=== PATIENT | female | born 1985 | race Hispanic/Latino ===

== ENCOUNTER 2019-11-19 20:14 | Emergency (ER) | payer MEDICAID, OTHER ==
[2019-11-19 21:07] LABS: BASOPHILS % (AUTO) 0.8 % (0.0-5.0); EOSINOPHILS % (AUTO) 3.3 % (0.0-8.0); HEMATOCRIT 40.8 % (36-48); LYMPHOCYTES % (AUTO) 23.3 % (21.0-51.0); MEAN CORPUSCULAR HEMOGLOBIN 29.7 pg (27.0-33.0); MEAN CORPUSCULAR HGB CONC 33.1 g/dL (32.0-36.0); MEAN CORPUSCULAR VOLUME 89.9 fL (79-99); MONOCYTES % (AUTO) 5.6 % (3.0-13.0); NEUTROPHILS % (AUTO) 66.6 % (40.0-77.0); PLATELET COUNT (AUTO) 304 K/uL (130-400); RED BLOOD CELL COUNT(AUTO) 4.54 MIL/uL (4.00-5.50); RED CELL DISTRIBUTION WIDTH 13.2 % (11.0-15.5); WHITE BLOOD COUNT (AUTO) 11.8 K/uL (4.8-10.8)
[2019-11-19 21:25] LABS: CREATININE 0.6 mg/dL (0.5-1.5); POTASSIUM 3.3 mmol/L (3.5-5.1)
[2019-11-19 21:30] LABS: ALBUMIN 4.2 g/dL (3.5-5.0); BILIRUBIN,DIRECT 0.2 mg/dL (0.0-0.3); BILIRUBIN,TOTAL 0.5 mg/dL (0.2-1.0); TOTAL PROTEIN, SERUM 7.8 g/dL (6.0-8.3)
[2019-11-19] MEDS ORDERED: KETOROLAC TROMETHAMINE 30MG/ML ONE (21:43)
[2019-11-19 22:02] LABS: APPEARANCE,URINE SL CLOUDY (CLEAR); BILIRUBIN,URINE NEGATIVE (NEGATIVE); COLOR,URINE YELLOW (YELLOW); GLUCOSE, URINE (UA) NEGATIVE (NEGATIVE); KETONES,URINE NEGATIVE (NEGATIVE); LEUKOCYTE ESTERASE ,URINE TRACE (NEGATIVE); NITRATE,URINE NEGATIVE (NEGATIVE); OCCULT BLOOD,URINE NEGATIVE (NEGATIVE); PH,URINE 7.5 (5.0-8.0); PROTEIN,URINE NEGATIVE (NEGATIVE)
[2019-11-19 22:09] LABS: AMORPHOUS SEDIMENT,UR Moderate /LPF (None Seen); BACTERIA,URINE Few /HPF (None Seen); MUCUS,URINE Few LPF (None Seen); SQUAMOUS EPITHELIAL CELL,UR Moderate /HPF (0-2)
[2019-11-19] MEDS ORDERED: ORPHENADRINE CITRATE 30 MG/ML ML ONE (23:28)
[2019-11-19] MEDS ORDERED: LIDOCAINE 5% TOPICAL PATCH TP ONE (23:29)
== END 2019-11-20 00:41 | disposition home or self-care (01) ==
LOC: EDH 20:14
DX: M94.0 Chondrocostal junction syndrome [Tietze] (principal); Z98.51 Tubal ligation status
CPT/HCPCS: 36415; 71046; 80048; 80076; 81001; 81025; 82550; 83690; 84484; 85025; 85378; 93005; 96374; 96375; 99285; J1885; J2360

== ENCOUNTER 2019-11-23 16:55 | Inpatient (IN) | payer SELFPAY ==
[~2019-11-23] VITALS: Ht 149.9 cm; Wt 60.3 kg
[2019-11-23 17:21] LABS: BASOPHILS % (AUTO) 0.7 % (0.0-5.0); HEMATOCRIT 42.5 % (36-48); LYMPHOCYTES % (AUTO) 23.8 % (21.0-51.0); MEAN CORPUSCULAR HEMOGLOBIN 30.2 pg (27.0-33.0); MEAN CORPUSCULAR HGB CONC 32.9 g/dL (32.0-36.0); MEAN CORPUSCULAR VOLUME 91.6 fL (79-99); MONOCYTES % (AUTO) 6.9 % (3.0-13.0); NEUTROPHILS % (AUTO) 64.3 % (40.0-77.0); PLATELET COUNT (AUTO) 309 K/uL (130-400); RED BLOOD CELL COUNT(AUTO) 4.64 MIL/uL (4.00-5.50); RED CELL DISTRIBUTION WIDTH 13.5 % (11.0-15.5); WHITE BLOOD COUNT (AUTO) 9.7 K/uL (4.8-10.8)
[2019-11-23 17:26] LABS: APPEARANCE,URINE Turbid (CLEAR); BILIRUBIN,URINE Negative (NEGATIVE); COLOR,URINE Yellow (YELLOW); GLUCOSE, URINE (UA) Negative (NEGATIVE); KETONES,URINE Negative (NEGATIVE); LEUKOCYTE ESTERASE ,URINE Negative (NEGATIVE); NITRATE,URINE Negative (NEGATIVE); OCCULT BLOOD,URINE Large (NEGATIVE); PH,URINE 6.5 (5.0-8.0); PROTEIN,URINE Trace mg/dL (NEGATIVE)
[2019-11-23 17:28] LABS: HCG,QUAL RESULT NEGATIVE (NEGATIVE)
[2019-11-23 17:31] LABS: CREATININE 0.7 mg/dL (0.5-1.5); POTASSIUM 3.4 mmol/L (3.5-5.1)
[2019-11-23 17:33] LABS: RBC,URINE 26-50 /HPF (0-1)
[2019-11-23 17:37] LABS: BILIRUBIN,TOTAL 0.3 mg/dL (0.2-1.0); TOTAL PROTEIN, SERUM 8.5 g/dL (6.0-8.3)
[2019-11-23] MEDS ORDERED: ONDANSETRON HCL 4 MG/2 ML VIAL ONE (17:37)
[2019-11-23 17:38] LABS: AMORPHOUS SEDIMENT,UR Few /LPF (None Seen); BACTERIA,URINE Few /HPF (None Seen); SQUAMOUS EPITHELIAL CELL,UR None Seen /HPF (0-2)
[2019-11-23] MEDS ORDERED: MORPHINE SULFATE 4 MG/1ML SYG ONE (17:38)
[2019-11-23] MEDS ORDERED: KETOROLAC TROMETHAMINE 30MG/ML ONE (18:50)
[2019-11-23] MEDS ORDERED: ZOSYN 3.375GM+NS 50ML 50 ML IV ONE (19:13)
[2019-11-23] MEDS ORDERED: MEPERIDINE-PF 25 MG/ML SYG ONE ×2 (19:15→22:14)
[2019-11-23] MEDS ORDERED: ONDANSETRON HCL 4 MG/2 ML VIAL IV PRN (20:30)
[2019-11-23] MEDS ORDERED: NITROGLYCERIN 0.4 MG SL TAB SL PRN (20:30)
[2019-11-23] MEDS ORDERED: POTASSIUM CHLORIDE 10MEQ/100ML 10 MEQ/100 ML ML IV SCH (20:30)
[2019-11-23] MEDS ORDERED: ACETAMINOPHEN 325 MG TAB PO PRN ×2 (20:30)
[2019-11-23 20:42] LABS: INR 0.93 (0.85-1.15); PROTHROMBIN TIME 9.8 SEC (9.6-11.6)
[2019-11-23] MEDS: FAMOTIDINE/PF 20 MG/2 ML VIAL IV SCH (21:00)
[2019-11-23] MEDS ORDERED: FAMOTIDINE/PF 20 MG/2 ML VIAL IV ONE (21:32)
[2019-11-23] MEDS ORDERED: POTASSIUM CHLORIDE 20MEQ/100ML 100 ML IV ONE (21:32)
[2019-11-23] MEDS ORDERED: SODIUM CHLORIDE 0.9% 1000ML 1,000 ML IV ONE (21:33)
[2019-11-23] MEDS ORDERED: LIDOCAINE HCL 1% 20 ML VIAL ONE (22:02)
[2019-11-23] MEDS ORDERED: MEPERIDINE-PF 25 MG/ML SYG IM ONE (22:15)
[2019-11-23 22:47] VITALS: BP 141/77
[2019-11-24] VITALS (27 sets, daily range): BP systolic 111–152; BP diastolic 58–93
[2019-11-24] MEDS: MEPERIDINE-PF 25 MG/ML SYG IVP PRN ×3 (02:09→22:03)
[2019-11-24 06:18] LABS: HEMATOCRIT 39.1 % (36-48); MEAN CORPUSCULAR HEMOGLOBIN 29.6 pg (27.0-33.0); MEAN CORPUSCULAR HGB CONC 31.7 g/dL (32.0-36.0); MEAN CORPUSCULAR VOLUME 93.3 fL (79-99); PLATELET COUNT (AUTO) 278 K/uL (130-400); RED BLOOD CELL COUNT(AUTO) 4.19 MIL/uL (4.00-5.50); RED CELL DISTRIBUTION WIDTH 13.6 % (11.0-15.5); WHITE BLOOD COUNT (AUTO) 9.6 K/uL (4.8-10.8)
[2019-11-24] MEDS: SODIUM CHLORIDE 0.9% 1000ML 1,000 ML IV SCH ×2 (06:24→10:16)
[2019-11-24 06:37] LABS: ALBUMIN 3.4 g/dL (3.5-5.0); BILIRUBIN,TOTAL 0.5 mg/dL (0.2-1.0); CREATININE 0.6 mg/dL (0.5-1.5); MAGNESIUM 1.9 mg/dL (1.80-2.40); POTASSIUM 3.9 mmol/L (3.5-5.1); TOTAL PROTEIN, SERUM 7.2 g/dL (6.0-8.3)
--- NOTE | 2019-11-24 07:45 | NUR ---
PATIENT ASSESSED AND IS UP TO BATHROOM AND VOIDED 200CC OF BLOOD TINGED URINE. C/O HAVING SEVERE PAIN OF 8 ON SCALE OF 0 TO 10. TO RIGHT EPIGASTRIC AREA. STATES HAVING BEEN TO HOSPITAL ER ON TUESDAY AND WAS DISCHARGED AND THEN WENT TO [facility] ER AND WAS ALSO SENT HOME AND CAME [facility]. WAS TOLD IN REPORT THAT DR. MONET IS AWARE OF CONSULT AND ON HIS CENSUS.
[2019-11-24] MEDS: FAMOTIDINE/PF 20 MG/2 ML VIAL IV SCH ×2 (07:59→20:53)
[2019-11-24 08:30] LABS: EOSINOPHILS % (MANUAL) 4 % (1-6); LYMPHOCYTES % (MANUAL) 28 % (22-44); MAN.DIFF COMMENT-IMPRESSION MANUAL DIFFERENTIAL; MONOCYTES % (MANUAL) 2 % (2-9); PLATELET MORPHOLOGY COMMENT ADEQUATE; REACTIVE LYMPHOCYTES 6 % (0-0); SEGMENTED NEUTROPHILS % 60 % (40-70)
--- NOTE | 2019-11-24 11:00 | NUR ---
DR. SKELTON ROUNDED AND ORDER GIVEN FOR CONSENT PATIENT FOR LAPAROSCOPIC CHOLECYSTECTOMY AND/OR POSSIBLE OPEN CHOLECYSTECTOMY.
--- NOTE | 2019-11-24 13:00 | NUR ---
TOLERATING ACTIVITY WELL WHEN GOING TO BATHROOM. VOIDED 900CC TOTAL OF BLOOD TINGED URINE IN 2 VOIDS. PATIENT STABLE AND STILL C/O DISCOMFORT.
--- NOTE | 2019-11-24 16:20 | NUR ---
PATIENT WAS TAKEN VIA BED TO OR FOR LAPAROSCOPIC CHOLECYSTECTOMY. PATIENT HAS STABLE VITAL SIGNS AND HAS REMAINED AFEBRILE.
[2019-11-24] MEDS ORDERED: LIDOCAINE PF 2% 5ML ABBOJECT ONE (16:36)
[2019-11-24] MEDS ORDERED: MIDAZOLAM HCL 1 MG/ML 2ML VIAL ONE (16:37)
[2019-11-24] MEDS ORDERED: ONDANSETRON HCL 4 MG/2 ML VIAL ONE (16:37)
[2019-11-24] MEDS ORDERED: FENTANYL CITRATE PF 50 MCG/1 ML 2ML VIAL ONE ×2 (16:37→17:03)
[2019-11-24] MEDS ORDERED: PROPOFOL 10 MG/ML 20ML VIAL IV ONE (16:37)
--- NOTE | 2019-11-24 16:37 | NUR ---
cm note pt resides with spouse, independent with adls and ambulation. no dme. [facility] to assist with possible medicaid/[place]. dc plan is back home at time of dc. no dc needs. Addendum: 11/24/19 at 1638 by SCOTTY JESUS CM Amended: Links added.
[2019-11-24] MEDS ORDERED: ROCURONIUM 10MG/1ML SYR 10 MG/ML ML ONE (16:39)
--- NOTE | 2019-11-24 17:00 | NUR ---
DR. Davis AND LILIANA, MARY ROUNDED AND PATIENT IN OR. INFORMED OF NO ANTIBIOTICS ORDERED AND INDICATED TO CONTINUE ZOSYN [id number] AND ORDER WAS PUT ON Thrupoint.
[2019-11-24] MEDS ORDERED: HEPARIN SODIUM 1000UNIT/ML 10ML VIAL ONE (17:05)
[2019-11-24] MEDS ORDERED: KETOROLAC TROMETHAMINE 30MG/ML ONE (17:08)
[2019-11-24] MEDS ORDERED: NEOSTIGMINE 5MG/5ML SYR IV ONE (17:29)
[2019-11-24] MEDS ORDERED: GLYCOPYRROLATE 1 MG/5 ML SYRINGE ONE (17:29)
[2019-11-24] MEDS: LACTATED RINGERS 1000ML 1,000 ML IV SCH ×2 (17:50→20:55)
[2019-11-24] MEDS ORDERED: MEPERIDINE-PF 25 MG/ML SYG ONE ×2 (17:57→18:09)
--- NOTE | 2019-11-24 19:05 | NUR ---
PATIENT BACK TO ROOM AND REPORT WAS RECEIVED FROM APOLONIA, MINERAL RESOURCES INSPECTOR. BEDSIDE REPORT GIVEN TO Candy ROPER RN AND PATIENT CARE TRANSFERED AT THIS TIME. PATIENT WISHED TO VOID ON ADMISSION AND WAS PLACED ON BEDPAN AND WAS ABLE TO VOID PER KASSIDY TALLEY.
[2019-11-24] MEDS: ZOSYN 3.375GM+NS 50ML 50 ML IV SCH (22:02)
[2019-11-25] MEDS: SODIUM CHLORIDE 0.9% 1000ML 1,000 ML IV SCH ×2 (02:24→04:30)
[2019-11-25 03:28] VITALS: BP 130/77
--- NOTE | 2019-11-25 04:07 | NUR ---
PT. UP AND AMBULATING IN HALLWAY, WELL TOLERATED.
--- NOTE | 2019-11-25 04:24 | NUR ---
PT. BACK IN ROOM, C/O PAIN.
[2019-11-25] MEDS: MEPERIDINE-PF 25 MG/ML SYG IVP PRN (04:26)
[2019-11-25] MEDS: ZOSYN 3.375GM+NS 50ML 50 ML IV SCH ×2 (05:58→14:00)
[2019-11-25 07:41] VITALS: BP 132/77
--- NOTE | 2019-11-25 08:00 | NUR ---
ASSESSMENT DONE ON PATIENT AND PATIENT C/O HAVING PAIN. DR. MONET ROUNDED AND INDICATED PATIENT COULD BE DISCHARGED TODAY AND SCRIPT GIVEN FOR TYLENOL #3 FOR HOME PAIN MANAGEMENT. BANDAIDS TO INCISION REMOVED AND WAS INSTRUCTED TO CALL ON TUESDAY FOR FOLLOW UP APPOINTMENT ON 12/07/19. PATIENT VERBALIZED UNDERSTANDING.
[2019-11-25] MEDS ORDERED: ACET1TAB12 PO (08:01)
[2019-11-25] MEDS: FAMOTIDINE/PF 20 MG/2 ML VIAL IV SCH (08:47)
[2019-11-25] MEDS: ACETAMINOPHEN-CODEINE 300/30MG TAB PO PRN ×2 (08:53→13:24)
--- NOTE | 2019-11-25 11:00 | NUR ---
LILIANA DEL ROSARIO, MARY FOR HOSPITALIST ROUNDED AND INDICATED PATIENT WOULD BE ABLE TO BE DISCHARGED BUT PATIENT INDICATED THAT SHE WAS TOLD SHE WOULD PROBABLY GO HOME TODAY OR TOMORROW BUT TECHNOLOGY ARCHITECT WOULD BE COMING BACK.
[2019-11-25 11:43] VITALS: BP 121/74
--- NOTE | 2019-11-25 12:30 | NUR ---
LILIANA DEL ROSARIO NP WAS CALLED RE DISCHARGED AND INDICATED PATIENT WOULD BE GOING HOME BUT WOULD BE COMING TO SEE PATIENT BEFORE DISCHARGE. AGAIN PATIENT WAS ENCOURAGED TO AMBULATE IN HALLWAY AND PATIENT INDICATED SHE HAD AMBULATED IN ROOM.
--- NOTE | 2019-11-25 13:00 | NUR ---
LILIANA DEL ROSARIO NP IN TO SEE PATIENT AND SCRIPT FOR MOTRIN 800MGS LEFT FOR PATIENT TO TAKE ALONG WITH TYLENOL #3 FOR COMFORT AFTER DISCHARGE. PATIENT INDICATED SHE DOES NOT TOLERATED MOTRIN AND WOULD JUST TAKE TYLENOL OVER THE COUNTER NEEDED FOR PAIN. PATIENT INFORMED TO TAKE PLAIN TYLENOL IF PAIN IS MILD BUT NOT TO TAKE TOO MUCH TYLENOL DUE TO ITS AFFECTS TO LIVER. VERBALIZED UNDERSTANDING. INSTRUCTED TO TAKE EITHER OR EVERY 4 TO 6 HOURS. Addendum: 11/25/19 at 1427 by LON SORENSEN RN PIV REMOVED AT THIS TIME FOR DISCHARGE.
--- NOTE | 2019-11-25 14:00 | NUR ---
PIV REMOVED FOR DISCHARGE AT 1300 AND IV SITE WNL. PATIENT INDICATED WANTING TYLENOL #3 FOR DISCHARGED AND DELAYED DISCHARGE.
--- NOTE | 2019-11-25 15:45 | NUR ---
DISCHARGE INSTRUCTION GIVEN AND SCRIPT FOR PAIN MANAGEMENT GIVEN TO PATIENT. PATIENT REQUESTED A 'S EXCUSE FOR WORK AND ONE WAS DONE AND GIVEN TO PATIENT. PATIENT ALSO INSTRUCTED TO FOLLOW UP WITH DR. MONET'S OFFICE IF NEEDING A MORE DETAILED EXCUSE ON TUESDAY AND SCHEDULE FOLLOW UP APPT. FOR THE INDICATED BY DR. MONET. VITAL SIGNS DONE AND PATIENT IS STABLE. Addendum: 11/25/19 at 1554 by LON SORENSEN RN PATIENT WAS TAKEN VIA WHEELCHAIR AFTER VITALS TO FAMILY VEHICLE AND WAS DISCHARGED TO HER MOTHER .
[2019-11-25 15:50] VITALS: BP 115/68
== END 2019-11-25 15:50 | disposition home or self-care (01) | DRG 419 ==
LOC: EDH 16:55 → EDHIP 16:56 → WSH 22:30
PROVIDERS: ADMIT Internal Medicine; ATTEND Internal Medicine
PROC: 0FT44ZZ Resection of Gallbladder, Percutaneous Endoscopic Approach (ICD-10-PCS; principal; 2019-11-24 16:40)
DX: K80.00 Calculus of gallbladder with acute cholecystitis without obstruction (principal); R19.00 Intra-abdominal and pelvic swelling, mass and lump, unspecified site; E87.6 Hypokalemia; M47.815 Spondylosis without myelopathy or radiculopathy, thoracolumbar region; Z87.442 Personal history of urinary calculi; Z98.51 Tubal ligation status
CPT/HCPCS: 36415; 74176; 76705; 80053; 81001; 81025; 83690; 83735; 85025; 85610; 93005; G0378; J1644; J1885; J2001; J2175; J2250; J2270; J2405; J2543; J2704; J2710; J3010; J3480; J3490; J7030; J7120